=== PATIENT | female | born 1980 | race American Indian/Alaskan Native ===

== ENCOUNTER 2018-01-10 13:59 | Emergency (ER) | payer BC ==
[2018-01-10 14:25] VITALS: RESP 18
[2018-01-10 15:00] LABS: BASO # 0.1 K/uL (0.0-0.2); BASO % 1.3 % (0.0-2.0); EOS # 0.7 K/uL (0.0-0.7); EOS % 7.5 % (0.0-4.0); HEMOGLOBIN 10.3 g/dL (11.0-16.0); LYMPH # 1.9 K/uL (1.0-4.3); LYMPH % 20.7 % (20.0-40.0); MEAN CORPUSCULAR HEMOGLOBIN 31.8 pg (27.0-31.0); MEAN CORPUSCULAR HGB CONC 35.6 g/dL (33.0-37.0); MEAN PLATELET VOLUME 6.6 fL (7.2-11.7); MONO # 0.5 K/uL (0.0-0.8); NEUT # 5.9 K/uL (1.8-7.0); NEUT % 65.5 % (50.0-75.0); RBC 3.24 Mil/uL (3.80-5.20); RED CELL DISTRIBUTION WIDTH 13.2 % (11.5-14.5)
[2018-01-10 15:02] LABS: MEAN CELL VOLUME 89.2 fL (81.0-99.0)
[2018-01-10 15:18] LABS: ALBUMIN 3.7 g/dL (3.5-5.0); ALT/SGPT 45 U/L (9-52); AST/SGOT 45 U/L (14-36); BLOOD UREA NITROGEN 9 mg/dL (7-17); CALCIUM 9.6 mg/dl (8.6-10.4); GFR AFRICAN-AMERICAN > 60; GFR NON-AFRICAN AMERICAN > 60
[2018-01-10 15:27] LABS: HCG,QUALITATIVE URINE NEGATIVE (NEGATIVE)
[2018-01-10 15:32] LABS: SQUAMOUS EPITHIAL 3 /hpf (0-5); URINE BILIRUBIN NEGATIVE (NEGATIVE); URINE BLOOD NEGATIVE (NEGATIVE); URINE CLARITY Hazy (Clear); URINE COLOR Yellow (YELLOW); URINE GLUCOSE (UA) NORMAL (Normal); URINE LEUKOCYTE ESTERASE TRACE Leu/uL (Negative); URINE PROTEIN NEGATIVE (NEGATIVE); URINE UROBILINOGEN NORMAL mg/dL (0.2-1.0)
[2018-01-10 16:00] LABS: B-TYPE NATRIURETIC PEPTIDE < 11.1 pg/mL (0-450)
[2018-01-10] MEDS ORDERED: Iodixanol 320 MG/ML 100 ML BOTTLE IV ONE (16:09)
--- NOTE | 2018-01-10 16:56 | CT ---
PROCEDURE: CT Chest with contrast (Pulmonary Angiogram) HISTORY: SOB COMPARISON: None available. TECHNIQUE: Axial computed tomography images were obtained of the chest in the pulmonary arterial phase of enhancement. Coronal and sagittal reformatted images were created and reviewed. Intravenous contrast dose: 100 mL Visipaque 320 Radiation dose: Total exam DLP = 488.85 mGy-cm. This CT exam was performed using one or more of the following dose reduction techniques: Automated exposure control, adjustment of the mA and/or kV according to patient size, and/or use of iterative reconstruction technique. FINDINGS: PULMONARY ARTERIES: Grossly technically limited examination. This is due to the patient's inability to raise arms above the head for the examination resulting beam hardening artifact, as well as to body habitus and timing of contrast administration versus scan. No large central pulmonary embolus. Unable to adequately evaluate lobar, segmental and subsegmental pulmonary artery branches. AORTA: No acute findings. No thoracic aortic aneurysm. LUNGS: Bilateral lower lobe linear scar/atelectasis. No pulmonary infiltrate. PLEURAL SPACES: Unremarkable. No effusion or pneuomothorax. HEART: Unremarkable. No cardiomegaly. No significant pericardial effusion. LYMPH NODES: No lymphadenopathy. BONES, CHEST WALL: Small amount of gas in the lower right anterior chest wall, status post breast reduction mammoplasty. Please correlate with timing of recent surgery. No chest wall collection appreciated. OTHER FINDINGS: Unremarkable. IMPRESSION: Grossly limited examination. No large central pulmonary embolism. Unable to adequately evaluate lobar, segmental and subsegmental pulmonary artery branches. No infiltrate/ effusion.
--- NOTE | 2018-01-10 17:40 | C.PDOC ---
History Of Present Illness 37 yo female with PMH HTN c/o b/l leg swelling for 9 days. Pt notes that she had breast reduction surgery with Dr Carmella Askew at [facility] on . She noted that she had leg swelling right away and it has improved in comparison to the first day. Pt was seen for f/u with plastic and was instructed to continue her HTN medication. She also had dopplers of b/l legs yesterday which she states were negative. Today she went to the clinic and was c /o SOB so they sent her to ER. Pt notes its hard to take a deep breath secondary to the breast pain and swelling. Denies abdominal pain, fever, n/v, headache, dizziness, or change in sensation. Time Seen by Provider: 01/10/18 14:19 Chief Complaint (Nursing): Shortness Of Breath History Per: Patient History/Exam Limitations: no limitations Onset/Duration Of Symptoms: Days Current Symptoms Are (Timing): Still Present Past Medical History Vital Signs: Last Vital Signs Temp 98.9 F 01/10/18 18:26 Pulse 100 H 01/10/18 18:26 Resp 18 01/10/18 18:26 BP 109/77 01/10/18 18:26 Pulse Ox 96 01/10/18 18:58 - Medical History PMH: Asthma, HTN, Sexually Transmitted Disease Family History: States: Unknown Family Hx - Social History Hx Tobacco Use: Yes Hx Alcohol Use: Yes Hx Substance Use: No - Immunization History Hx Tetanus Toxoid Vaccination: No Hx Influenza Vaccination: No Hx Pneumococcal Vaccination: No Review Of Systems Except As Marked, All Systems Reviewed And Found Negative. Respiratory: Positive for: Shortness of Breath Musculoskeletal: Positive for: Leg Pain Physical Exam - Physical Exam Appears: Well, Non-toxic, No Acute Distress Skin: Normal Color, Warm, Dry Head: Atraumatic, Normacephalic Eye(s): bilateral: Normal Inspection, EOMI Nose: Normal Oral Mucosa: Moist Neck: Normal, Supple Chest: Symmetrical, Tenderness ((+) bandages in place, swelling to the breast, no erythema, no discharge, dried blood around the nipples) Cardiovascular: Rhythm Regular Respiratory: Decreased Breath Sounds Gastrointestinal/Abdominal: Normal Exam, Soft, No Tenderness Back: Normal Inspection Extremity: Normal ROM, Pedal Edema Neurological/Psych: Oriented x3, Normal Speech ED Course And Treatment - Laboratory Results Result Diagrams: 01/10/18 14:50 01/10/18 14:50 O2 Sat by Pulse Oximetry: 96 - CT Scan/US CTA Other Rad Studies (CT/US): Read By Radiologist, Radiology Report Reviewed CT/US Interpretation: This CT exam was performed using one or more of the following dose reduction techniques: Automated exposure control, adjustment of the mA and/or kV according to patient size, and/or use of iterative reconstruction technique. FINDINGS: PULMONARY ARTERIES: Grossly technically limited examination. This is due to the patient's inability to raise arms above the head for the examination resulting beam hardening artifact, as well as to body habitus and timing of contrast administration versus scan. No large central pulmonary embolus. Unable to adequately evaluate lobar, segmental and subsegmental pulmonary artery branches. AORTA: No acute findings. No thoracic aortic aneurysm. LUNGS: Bilateral lower lobe linear scar/atelectasis. No pulmonary infiltrate. PLEURAL SPACES: Unremarkable. No effusion or pneuomothorax. HEART: Unremarkable. No cardiomegaly. No significant pericardial effusion. LYMPH NODES: No lymphadenopathy. BONES, CHEST WALL: Small amount of gas in the lower right anterior chest wall, status post breast reduction mammoplasty. Please correlate with timing of recent surgery. No chest wall collection appreciated. OTHER FINDINGS: Unremarkable. IMPRESSION: Grossly limited examination. No large central pulmonary embolism. Unable to adequately evaluate lobar, segmental and subsegmental pulmonary artery branches. No infiltrate/ effusion. Progress Note: B/l duplex dopplers ordered. PT refused them noting she was told by the tech they were negative yesterday. On re-evaluation, pt requests to be discharge. Pt notes she feels better and would like to go home. Denies chest pain. Afebrile. Pulse ox 98%. Case discussed with Dr Barajas who saw and evaluated pt and agreed upon plan and discharge. Pt was instructed to follow up with PMDin 1-2 days or return to ER if symtpoms persist or worsen. Disposition - Disposition Disposition: HOME/ ROUTINE Disposition Time: 18:12 Condition: STABLE Additional Instructions: Follow up with your PMD in 1-2 days. Return to ER if symptoms persist or worsen. Instructions: Shortness of Breath (Dyspnea) (DC) Forms: [employer] ([place]) - Clinical Impression Clinical Impression: Pedal edema, Breast pain
[2018-01-10] MEDS ORDERED: Sodium Chloride 0.9% 500 ML IV ONE (17:51)
[2018-01-10 18:27] VITALS: BP 109/77; PULSE 100; TEMP 98.9
[2018-01-10 18:58] VITALS: O2SAT 96
--- NOTE | 2018-01-14 14:34 | CARD ---
APPROVED REPORT EKG Measurement Heart [id number] <Conclusion> Sinus tachycardia Cannot rule out Anterior infarct, age undetermined Abnormal ECG
== END 2018-01-10 18:27 | disposition home or self-care (01) ==
LOC: C.ER 13:59
DX: R60.0 Localized edema (principal); N64.4 Mastodynia
CPT/HCPCS: 71275; 80053; 81001; 82550; 82553; 83880; 84484; 84703; 85025; 93005; 96374; 99285; J1885; Q9967